=== PATIENT | female | born 1950 | race Caucasian/White ===

== ENCOUNTER 2021-01-29 12:11 | Emergency (ER) | payer MEDICARE ==
[~2021-01-29] VITALS: Ht 152.4 cm; Wt 62.6 kg
[2021-01-29] MEDS ORDERED: KRISTALOSE20 GM PO (15:22)
[2021-01-29] MEDS ORDERED: SLOW-MAG64 M1 PO (15:22)
[2021-01-29] MEDS ORDERED: AMANTADINE100 M1 PO (15:23)
[2021-01-29] MEDS ORDERED: VITAMIN D310 MC2 PO (15:23)
[2021-01-29] MEDS ORDERED: FUROSEMIDE 20 M20 MG PO (15:23)
[2021-01-29] MEDS ORDERED: DULCOLAX STOOL100 M1 PO (15:23)
[2021-01-29] MEDS ORDERED: ANUSOL-HC25 MG RECTAL (15:24)
[2021-01-29] MEDS ORDERED: SERTRALINE HCL100 MG PO (15:24)
[2021-01-29] MEDS ORDERED: OMEPRAZOLE 20 M20 M1 PO (15:25)
[2021-01-29] MEDS ORDERED: [UNRECOGNIZED DRUG - OTHER] (15:25)
[2021-01-29] MEDS ORDERED: SUPER THERAVIT1 EACH PO (15:25)
[2021-01-29] MEDS ORDERED: XIFAXAN550 M1 PO (15:25)
[2021-01-29] MEDS ORDERED: MILK THISTLE150 MG PO (15:25)
[2021-01-29] MEDS ORDERED: VOLTAREN100 GM TOP (15:26)
[2021-01-29] MEDS ORDERED: VITAMIN E1000 UNIT PO (15:26)
[2021-01-29] MEDS ORDERED: SPIRONOLACTONE25 MG PO (15:26)
[2021-01-29] MEDS ORDERED: TRAMADOL 50 MG50 MG PO ×2 (15:35→15:38)
[2021-01-29] MEDS ORDERED: CEPHALEXIN500 MG PO ×2 (15:35→15:38)
[2021-01-29 16:09] VITALS: BP 126/68
== END 2021-01-29 16:10 | disposition home or self-care (01) ==
LOC: M.ERS 12:11
DX: S81.812A Laceration without foreign body, left lower leg, initial encounter (principal); Z90.710 Acquired absence of both cervix and uterus; W23.0XXA Caught, crushed, jammed, or pinched between moving objects, initial encounter; Y93.89 Activity, other specified; Y92.89 Other specified places as the place of occurrence of the external cause; Y99.8 Other external cause status